=== PATIENT | female | born 1950 | race Caucasian/White ===

== ENCOUNTER → 2016-12-08 | Outpatient (CLI) | payer MEDICARE, OTHER | LOC: HEART 5 12-06 08:30 | DX: R00.1 Bradycardia, unspecified (principal); R42 Dizziness and giddiness ==

== ENCOUNTER → 2021-03-31 | Outpatient (CLI) | payer MEDICARE, OTHER | LOC: RAD 12:08 | DX: M25.522 Pain in left elbow (principal); M25.512 Pain in left shoulder; M79.89 Other specified soft tissue disorders | CPT/HCPCS: 73030; 73080 ==

== ENCOUNTER → 2021-04-07 | Outpatient (CLI) | payer MEDICARE, OTHER | LOC: EXRD 11:14 | DX: E04.1 Nontoxic single thyroid nodule (principal) | CPT/HCPCS: 76536 ==

== ENCOUNTER → 2021-06-11 | Outpatient (CLI) | payer MEDICARE, OTHER | LOC: MRI 10:13 | DX: R22.32 Localized swelling, mass and lump, left upper limb (principal) | CPT/HCPCS: 36415; 73223; 82565; 84520; A9577 ==

== ENCOUNTER 2021-06-19 10:52 | Emergency (ER) | payer MEDICARE, OTHER ==
[2021-06-19 12:15] LABS: HEMOGLOBIN 14.6 gm/dl (12.3-15.3); RED BLOOD COUNT 4.76 M/UL (4.00-5.10)
[2021-06-19 12:36] LABS: BUN/CREATININE RATIO 36 (0-10)
[2021-06-19 12:37] LABS: WHITE BLOOD COUNT 6.4 K/UL (4.5-11.0)
[2021-06-19] MEDS ORDERED: PEPCID40 MG PO (12:51)
[2021-06-19] MEDS ORDERED: MEDROL DOSEPAK 24 MG PO (12:51)
== END 2021-06-19 13:45 | disposition home or self-care (01) ==
LOC: ER1 10:52
PROVIDERS: Physician Assistant
DX: L27.0 Generalized skin eruption due to drugs and medicaments taken internally (principal); T50.8X5A Adverse effect of diagnostic agents, initial encounter; Z88.1 Allergy status to other antibiotic agents
CPT/HCPCS: 80053; 85025; 96374; 96375; 99283; J2930

== ENCOUNTER → 2022-05-17 | Outpatient (CLI) | payer MEDICARE, OTHER ==
[~2022-05-17] MED LIST: MEDROL DOSEPAK 24 MG PO; PEPCID40 MG PO
== END ==
LOC: US 07:31
DX: R74.01 Elevation of levels of liver transaminase levels (principal); K76.89 Other specified diseases of liver
CPT/HCPCS: 76705